=== PATIENT | male | born 1970 | race Caucasian/White ===

== ENCOUNTER 2017-02-25 15:15 | Inpatient (IN) | payer OTHER ==
[2017-02-25 17:02] VITALS: BMI 28.8
--- NOTE | 2017-02-25 18:44 | HP ---
CIWA Score - CIWA Score Nausea/Vomitin-Mild Nausea/No Vomiting Muscle Tremors: 4-Moderate,w/Arms Extend Anxiety: 4-Mod. Anxious/Guarded Agitation: 4-Moderately Restless Paroxysmal Sweats: 1-Minimal Palms Moist Orientation: 0-Oriented Tacttile Disturbances: 0-None Auditory Disturbances: 0-None Visual Disturbances: 0-None Headache: 3-Moderate CIWA-Ar Total Score: 17 Admission ROS BHS - HPI Chief Complaint: withdrawal sx alcohol intoxicated treated in [facility] 02/24/15 discharged today for alcohol detox, history of dt and fatty liver, fell "few days ago" negative ct of head knee and ankles Allergies/Adverse Reactions: Allergies Allergy/AdvReac Type Severity Reaction Status Date / Time No Known Allergies Allergy Verified 02/25/17 17:27 History of Present Illness: 46 years old male with long history of alcohol dependence denies medical has depression is admitted to detox Exam Limitations: No Limitations - Ebola screening Have you traveled outside of the country in the last 21 days: No Have you had contact with anyone from an Ebola affected area: No Have you been sick,other than usual withdrawal symptoms: No Do you have a fever: No - Review of Systems Constitutional: Chills, Changes in sleep, Weight Stable EENT: reports: No Symptoms Reported Respiratory: reports: No Symptoms reported Cardiac: reports: No Symptoms Reported GI: reports: Nausea, Poor Fluid Intake, Indigestion, Abdominal cramping : reports: No Symptoms Reported Musculoskeletal: reports: Back Pain, Joint Pain (right knee) Integumentary: reports: Change in Color (knees fell days ago) Neuro: reports: Tremors, Other (dt) Endocrine: reports: No Symptoms Reported Hematology: reports: No Symptoms Reported Psychiatric: reports: Judgement Intact, Anxious, Depressed Other Systems: Reviewed and Negative Patient History - Patient Medical History Hx Anemia: No Hx Asthma: No Hx Chronic Obstructive Pulmonary Disease (COPD): No Hx Cancer: No Hx Cardiac Disorders: No Hx Congestive Heart Failure: No Hx Hypertension: No Hx Hypercholesterolemia: No Hx Pacemaker: No HX Cerebrovascular Accident: No Hx Seizures: No Hx Dementia: No Hx Diabetes: No Hx Gastrointestinal Disorders: No Hx Liver Disease: No Hx Genitourinary Disorders: No Hx Sexually Transmitted Disorders: No Hx Renal Disease (ESRD): No Hx Thyroid Disease: No Hx Human Immunodeficiency Virus (HIV): No Hx Hepatitis C: No Hx Depression: Yes Hx Suicide Attempt: Yes (2014) Hx Bipolar Disorder: No Hx Schizophrenia: No - Patient Surgical History Past Surgical History: Yes Hx Neurologic Surgery: No Hx Cataract Extraction: No Hx Cardiac Surgery: No Hx Lung Surgery: No Hx Breast Surgery: No Hx Breast Biopsy: No Hx Abdominal Surgery: No Hx Appendectomy: No Hx Cholecystectomy: Yes (1989) Hx Genitourinary Surgery: No Hx Orthopedic Surgery: No Anesthesia Reaction: No - PPD History Previous Implant?: Yes Documented Results: Negative w/o proof Implanted On Prior R Admission?: No PPD to be Administered?: Yes - Smoking Cessation Smoking history: Former smoker Have you smoked in the past 12 months: Yes Aproximately how many cigarettes per day: 0 Hx Chewing Tobacco Use: No Initiated information on smoking cessation: No - Substance & Tx. History Hx Alcohol Use: Yes Hx Substance Use: Yes Substance Use Type: Alcohol Hx Substance Use Treatment: Yes - Substances Abused Alcohol Route: Oral Frequency: Daily Amount used: liquor- 1/2 gallon Age of first use: 15 Date of Last Use: 02/23/17 Family Disease History - Family Disease History Family Disease History: Respiratory: Mother (), Other: Father ( liver), Mother, Brother (mva ) Admission Physical Exam BHS - Vital Signs Vital Signs: Vital Signs - 24 hr 02/25/17 17:00 Temperature 96.9 F L Pulse Rate 165 H Respiratory 20 Rate Blood Pressure 141/95 - Physical General Appearance: Yes: Appropriately Dressed, Moderate Distress, Tremorous, Irritable, Sweating, Anxious HEENTM: Yes: Hearing grossly Normal, Normal ENT Inspection, Normocephalic, Normal Voice Respiratory: Yes: Chest Non-Tender, Lungs Clear, Normal Breath Sounds, No Respiratory Distress, No Accessory Muscle Use Neck: Yes: Supple, Trachea in good position Breast: Yes: Breasts Symetrical Cardiology: Yes: Regular Rhythm, S1, S2, Tachycardia Abdominal: Yes: Non Tender, Soft, Increased Bowel Sounds Genitourinary: Yes: Within Normal Limits Back: Yes: Normal Inspection Musculoskeletal: Yes: full range of Motion, Gait Steady Extremities: Yes: Normal Inspection, Normal Range of Motion, Non-Tender, Tremors Neurological: Yes: Fully Oriented, Alert, Motor Strength 5/5, Normal Response, Depressed Affect Integumentary: Yes: Warm Lymphatic: Yes: Within Normal Limits - Diagnostic (1) Alcohol dependence with uncomplicated withdrawal Current Visit: Yes Status: Acute (2) GERD (gastroesophageal reflux disease) Current Visit: Yes Status: Chronic Qualifiers: Esophagitis presence: without esophagitis Qualified Code(s): K21.9 - Gastro-esophageal reflux disease without esophagitis (3) Fatty liver Current Visit: Yes Status: Chronic (4) PTSD (post-traumatic stress disorder) Current Visit: Yes Status: Suspected Cleared for Admission [facility] - Detox or Rehab [facility] Level of Care: Medically Managed Detox Regimen/Protocol: Librium [facility] Breath Alcohol Content Breath Alcohol Content: 0 Urine Drug Screen - Results Drug Screen Negative: No Urine Drug Screen Results: BZO-Benzodiazepines
[2017-02-25] MEDS ORDERED: ACETAMINOPHEN 325 MG TABLET (FP) PO PRN (18:52)
[2017-02-25] MEDS ORDERED: hydrOXYzine PAMOATE 50 MG CAPSULE (FP) PO PRN (18:52)
[2017-02-25] MEDS ORDERED: guaiFENesin/D-METHORPHAN HB 10 ML UNIT-DOSE CUPS PO PRN (18:52)
[2017-02-25] MEDS ORDERED: MAG HYDROX/AL HYDROX/SIMETH 30 ML UNIT-DOSE CUP PO PRN (18:52)
[2017-02-25] MEDS ORDERED: P-EPHED 60MG/TRIPROLIDI 2.5MG TABLET PO PRN (18:52)
[2017-02-25] MEDS ORDERED: MAGNESIUM HYDROX 2400MG/30ML ORAL SUSPENSION 30 ML CUP PO PRN (18:52)
[2017-02-25] MEDS ORDERED: chlordiazePOXIDE HCL 25 MG CAPSULE PO PRN (18:52)
[2017-02-25] MEDS ORDERED: MAGNESIUM CITRATE 300 ML BOTTLE PO PRN (18:52)
[2017-02-25] MEDS ORDERED: LOPERAMIDE HCL 2 MG CAPSULE PO PRN (18:52)
[2017-02-25] MEDS ORDERED: chlordiazePOXIDE HCL 25 MG CAPSULE PO ONE (18:52)
[2017-02-25] MEDS ORDERED: MENTHOL/PHENOL 1 EACH UD MM PRN (18:52)
[2017-02-25] MEDS: RANITIDINE HCL 150 MG TABLET (FP) PO SCH (22:24)
[2017-02-25] MEDS: chlordiazePOXIDE HCL 25 MG CAPSULE PO SCH (22:24)
[2017-02-25] MEDS: diphenhydrAMINE HCL 50 MG CAPSULE PO PRN (22:24)
[2017-02-25] MEDS: THIAMINE HCL 100 MG TABLET (FP) PO SCH (22:24)
[2017-02-25 23:07] LABS: URINE APPEARANCE CLEAR; URINE BILIRUBIN NEGATIVE (NEGATIVE); URINE BLOOD NEGATIVE (NEGATIVE); URINE COLOR LTYELLOW; URINE GLUCOSE (UA) NEGATIVE (NEGATIVE); URINE KETONE TRACE (NEGATIVE); URINE LEUK ESTERASE NEGATIVE (NEGATIVE); URINE NITRITE NEGATIVE (NEGATIVE); URINE PROTEIN NEGATIVE (NEGATIVE); URINE UROBILINOGEN NEGATIVE E.U./dl (0.2-1.0)
[2017-02-25] MEDS: SUCRALFATE 1 GM/10 ML UNIT DOSE CUPS PO SCH (23:07)
[2017-02-26] MEDS: chlordiazePOXIDE HCL 25 MG CAPSULE PO SCH ×4 (05:44→22:18)
[2017-02-26] MEDS: SUCRALFATE 1 GM/10 ML UNIT DOSE CUPS PO SCH ×4 (07:12→22:18)
[2017-02-26] MEDS: RANITIDINE HCL 150 MG TABLET (FP) PO SCH ×2 (10:03→22:18)
[2017-02-26] MEDS: PRENATAL VITAMINS W/ FOLIC ACID TABLET (FP) PO SCH (10:03)
[2017-02-26 10:07] LABS: MCH 30.3 pg (25.7-33.7); MCHC 32.8 g/dl (32.0-35.9); MEAN CELL VOLUME 92.3 fl (80-96); MEAN PLT VOLUME 7.8 fl (7.5-11.1); PLATELET COUNT 176 K/MM3 (134-434); RDW 16.8 % (11.9-15.9); WHITE BLOOD COUNT 3.3 K/mm3 (4.0-10.0)
[2017-02-26 10:47] LABS: ALBUMIN 3.1 g/dl (3.4-5.0); ALK PHOS 128 U/L (45-117); ANION GAP 7 (8-16); BILIRUBIN,TOTAL 0.4 mg/dL (0.2-1.0); CALCIUM 8.6 mg/dL (8.5-10.1); CO2 31 mmol/L (21-32); COCKROFT - GAULT 160.73; CREATININE 0.7 mg/dL (0.7-1.3); GLUCOSE,RANDOM 83 mg/dL (74-106); SGOT/AST 36 U/L (15-37); SGPT/ALT 36 U/L (12-78); TOT PROT 6.8 g/dl (6.4-8.2)
--- NOTE | 2017-02-26 11:59 | EKG ---
Test Reason : Blood Pressure : / mmHG Vent. Rate : 053 BPM Atrial Rate : 053 BPM P-R Int : 164 ms QRS Dur : 110 ms QT Int : 424 ms P-R-T Axes : 064 010 044 degrees QTc Int : 397 ms SINUS BRADYCARDIA OTHERWISE NORMAL ECG NO PREVIOUS ECGS AVAILABLE Confirmed by KELLY WALKER, WILMAR ([id number]) on 02/26/2017 11:58:35 AM Referred By: Confirmed By:WILMAR MENDOZA MD
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
[2017-02-26] MEDS ORDERED: chlordiazePOXIDE HCL 25 MG CAPSULE PO ONE (14:00)
[2017-02-26] MEDS: POTASSIUM CHLORIDE TABS 20 MEQ TABLET.ER (FP) PO SCH ×2 (14:46→22:18)
--- NOTE | 2017-02-26 14:54 | PN ---
[facility] CIWA - CIWA Score Nausea/Vomitin Muscle Tremors: 5 Anxiety: 4-Mod. Anxious/Guarded Agitation: 4-Moderately Restless Paroxysmal Sweats: 3 Orientation: 0-Oriented Tacttile Disturbances: 0-None Auditory Disturbances: 0-None Visual Disturbances: 0-None Headache: 0-None Present CIWA-Ar Total Score: 18 S Progress Note (SOAP) Subjective: Anxiety,tremors,sweating,interrupted sleep,restless Objective: 02/26/17 14:53 Vital Signs - 8 hr 02/26/17 02/26/17 09:35 13:28 Temperature 97.0 F L 97.5 F L Pulse Rate 80 75 Respiratory 18 18 Rate Blood Pressure 122/86 113/78 Laboratory Last Values WBC 3.3 K/mm3 (4.0-10.0) L 02/26/17 07:00 RBC 4.33 M/mm3 (4.00-5.60) 02/26/17 07:00 Hgb 13.1 GM/dL (11.7-16.9) 02/26/17 07:00 Hct 40.0 % (35.4-49) 02/26/17 07:00 MCV 92.3 fl (80-96) 02/26/17 07:00 MCHC 32.8 g/dl (32.0-35.9) 02/26/17 07:00 RDW 16.8 % (11.9-15.9) H 02/26/17 07:00 Plt Count 176 K/MM3 (134-434) 02/26/17 07:00 MPV 7.8 fl (7.5-11.1) 02/26/17 07:00 Sodium 140 mmol/L (136-145) 02/26/17 07:00 Potassium 3.3 mmol/L (3.5-5.1) L 02/26/17 07:00 Chloride 102 mmol/L (98-107) 02/26/17 07:00 Carbon Dioxide 31 mmol/L (21-32) 02/26/17 07:00 Anion Gap 7 (8-16) L 02/26/17 07:00 BUN 10 mg/dL (7-18) 02/26/17 07:00 Creatinine 0.7 mg/dL (0.7-1.3) 02/26/17 07:00 Creat Clearance w eGFR > 60 (>60) 02/26/17 07:00 Random Glucose 83 mg/dL (74-106) 02/26/17 07:00 Calcium 8.6 mg/dL (8.5-10.1) 02/26/17 07:00 Total Bilirubin 0.4 mg/dL (0.2-1.0) 02/26/17 07:00 AST 36 U/L (15-37) 02/26/17 07:00 ALT 36 U/L (12-78) 02/26/17 07:00 Alkaline Phosphatase 128 U/L (45-117) H 02/26/17 07:00 Total Protein 6.8 g/dl (6.4-8.2) 02/26/17 07:00 Albumin 3.1 g/dl (3.4-5.0) L 02/26/17 07:00 Urine Color Ltyellow 02/25/17 22:02 Urine Appearance Clear 02/25/17 22:02 Urine pH 5.0 (5.0-8.0) 02/25/17 22:02 Ur Specific [place] 1.020 (1.005-1.025) 02/25/17 22:02 Urine Protein Negative (NEGATIVE) 02/25/17 22:02 Urine Glucose (UA) Negative (NEGATIVE) 02/25/17 22:02 Urine Ketones Trace (NEGATIVE) H 02/25/17 22:02 Urine Blood Negative (NEGATIVE) 02/25/17 22:02 Urine Nitrite Negative (NEGATIVE) 02/25/17 22:02 Urine Bilirubin Negative (NEGATIVE) 02/25/17 22:02 Urine Urobilinogen Negative E.U./dl (0.2-1.0) 02/25/17 22:02 Ur Leukocyte Esterase Negative (NEGATIVE) 02/25/17 22:02 RPR Titer Nonreactive (NONREACTIVE) 02/26/17 07:00 labs noted,k-dur started Assessment: 02/26/17 14:54 Withdrawal sx. Plan: Continue detox
[2017-02-26] MEDS: diphenhydrAMINE HCL 50 MG CAPSULE PO PRN (22:18)
[2017-02-26] MEDS: THIAMINE HCL 100 MG TABLET (FP) PO SCH (22:18)
[2017-02-27] MEDS: chlordiazePOXIDE HCL 25 MG CAPSULE PO SCH ×3 (05:24→17:30)
[2017-02-27] MEDS: SUCRALFATE 1 GM/10 ML UNIT DOSE CUPS PO SCH ×4 (06:11→22:21)
[2017-02-27] MEDS: POTASSIUM CHLORIDE TABS 20 MEQ TABLET.ER (FP) PO SCH ×2 (10:23→22:22)
[2017-02-27] MEDS: PRENATAL VITAMINS W/ FOLIC ACID TABLET (FP) PO SCH (10:23)
[2017-02-27] MEDS: RANITIDINE HCL 150 MG TABLET (FP) PO SCH ×2 (10:23→22:22)
--- NOTE | 2017-02-27 11:11 | PN ---
[facility] CIWA - CIWA Score Nausea/Vomitin-Mild Nausea/No Vomiting Muscle Tremors: 4-Moderate,w/Arms Extend Anxiety: 4-Mod. Anxious/Guarded Agitation: 4-Moderately Restless Paroxysmal Sweats: 3 Orientation: 0-Oriented Tacttile Disturbances: 0-None Auditory Disturbances: 0-None Visual Disturbances: 0-None Headache: 0-None Present CIWA-Ar Total Score: 16 BHS Progress Note (SOAP) Subjective: Sweating,interrupted sleep,tremors,anxiety,restless. Objective: 02/27/17 11:10 Vital Signs - 8 hr 02/27/17 02/27/17 02/27/17 03:55 06:28 09:15 Temperature 97 F L 97.3 F L Pulse Rate 63 66 Respiratory 18 18 18 Rate Blood Pressure 105/67 139/91 Laboratory Last Values WBC 3.3 K/mm3 (4.0-10.0) L 02/26/17 07:00 RBC 4.33 M/mm3 (4.00-5.60) 02/26/17 07:00 Hgb 13.1 GM/dL (11.7-16.9) 02/26/17 07:00 Hct 40.0 % (35.4-49) 02/26/17 07:00 MCV 92.3 fl (80-96) 02/26/17 07:00 MCHC 32.8 g/dl (32.0-35.9) 02/26/17 07:00 RDW 16.8 % (11.9-15.9) H 02/26/17 07:00 Plt Count 176 K/MM3 (134-434) 02/26/17 07:00 MPV 7.8 fl (7.5-11.1) 02/26/17 07:00 Sodium 140 mmol/L (136-145) 02/26/17 07:00 Potassium 3.3 mmol/L (3.5-5.1) L 02/26/17 07:00 Chloride 102 mmol/L (98-107) 02/26/17 07:00 Carbon Dioxide 31 mmol/L (21-32) 02/26/17 07:00 Anion Gap 7 (8-16) L 02/26/17 07:00 BUN 10 mg/dL (7-18) 02/26/17 07:00 Creatinine 0.7 mg/dL (0.7-1.3) 02/26/17 07:00 Creat Clearance w eGFR > 60 (>60) 02/26/17 07:00 Random Glucose 83 mg/dL (74-106) 02/26/17 07:00 Calcium 8.6 mg/dL (8.5-10.1) 02/26/17 07:00 Total Bilirubin 0.4 mg/dL (0.2-1.0) 02/26/17 07:00 AST 36 U/L (15-37) 02/26/17 07:00 ALT 36 U/L (12-78) 02/26/17 07:00 Alkaline Phosphatase 128 U/L (45-117) H 02/26/17 07:00 Total Protein 6.8 g/dl (6.4-8.2) 02/26/17 07:00 Albumin 3.1 g/dl (3.4-5.0) L 02/26/17 07:00 Urine Color Ltyellow 02/25/17 22:02 Urine Appearance Clear 02/25/17 22:02 Urine pH 5.0 (5.0-8.0) 02/25/17 22:02 Ur Specific [place] 1.020 (1.005-1.025) 02/25/17 22:02 Urine Protein Negative (NEGATIVE) 02/25/17 22:02 Urine Glucose (UA) Negative (NEGATIVE) 02/25/17 22:02 Urine Ketones Trace (NEGATIVE) H 02/25/17 22:02 Urine Blood Negative (NEGATIVE) 02/25/17 22:02 Urine Nitrite Negative (NEGATIVE) 02/25/17 22:02 Urine Bilirubin Negative (NEGATIVE) 02/25/17 22:02 Urine Urobilinogen Negative E.U./dl (0.2-1.0) 02/25/17 22:02 Ur Leukocyte Esterase Negative (NEGATIVE) 02/25/17 22:02 RPR Titer Nonreactive (NONREACTIVE) 02/26/17 07:00 K+ replacement given Assessment: 02/27/17 11:11 Withdrawal sx. Hypokalemia Plan: Continue detox
[2017-02-27] MEDS ORDERED: chlordiazePOXIDE HCL 25 MG CAPSULE PO ONE (14:00)
[2017-02-27] MEDS: THIAMINE HCL 100 MG TABLET (FP) PO SCH (22:21)
[2017-02-27] MEDS: diphenhydrAMINE HCL 50 MG CAPSULE PO PRN (22:22)
[2017-02-27] MEDS: chlordiazePOXIDE 5 MG CAPSULE PO SCH (22:22)
[2017-02-28] MEDS: chlordiazePOXIDE 5 MG CAPSULE PO SCH (05:24)
[2017-02-28] MEDS: SUCRALFATE 1 GM/10 ML UNIT DOSE CUPS PO SCH (07:20)
[2017-02-28 10:18] VITALS: BP 104/70; PULSE 76; TEMP 98.2
--- NOTE | 2017-02-28 11:48 | DS ---
[facility] Detox Discharge Summary Admission Date: 02/25/17 Discharge Date: 02/28/17 - History Present History: Alcohol Dependence Additional Comments: ADVISED PATIENT TO FOLLOW-UP WITH [facility] FOR GENERAL MEDICAL ASSESSMENT. Pertinent Past History: GERD, Depression, Fatty Liver, PTSD. - Physical Exam Results Vital Signs: Vital Signs Temperature 98.2 F 02/28/17 10:18 Pulse Rate 76 02/28/17 10:18 Respiratory Rate 18 02/28/17 10:18 Blood Pressure 104/70 02/28/17 10:18 O2 Sat by Pulse Oximetry (%) Pertinent Admission Physical Exam Findings: WITHDRAWAL SYMPTOMS. Laboratory Tests 02/25/17 02/26/17 02/26/17 22:02 07:00 07:00 WBC 3.3 L RBC 4.33 Hgb 13.1 Hct 40.0 MCV 92.3 MCHC 32.8 RDW 16.8 H Plt Count 176 MPV 7.8 Sodium 140 Potassium 3.3 L Chloride 102 Carbon Dioxide 31 Anion Gap 7 L BUN 10 Creatinine 0.7 Creat Clearance w eGFR > 60 Random Glucose 83 Calcium 8.6 Total Bilirubin 0.4 AST 36 ALT 36 Alkaline Phosphatase 128 H Total Protein 6.8 Albumin 3.1 L Urine Color Ltyellow Urine Appearance Clear Urine pH 5.0 Ur Specific [place] 1.020 Urine Protein Negative Urine Glucose (UA) Negative Urine Ketones Trace H Urine Blood Negative Urine Nitrite Negative Urine Bilirubin Negative Urine Urobilinogen Negative Ur Leukocyte Esterase Negative RPR Titer 02/26/17 07:00 WBC RBC Hgb Hct MCV MCHC RDW Plt Count MPV Sodium Potassium Chloride Carbon Dioxide Anion Gap BUN Creatinine Creat Clearance w eGFR Random Glucose Calcium Total Bilirubin AST ALT Alkaline Phosphatase Total Protein Albumin Urine Color Urine Appearance Urine pH Ur Specific [place] Urine Protein Urine Glucose (UA) Urine Ketones Urine Blood Urine Nitrite Urine Bilirubin Urine Urobilinogen Ur Leukocyte Esterase RPR Titer Nonreactive LABS NOTED. - Treatment Hospital Course: Detoxed Safely - Medication Discharge Medications: Ambulatory Orders NK [No Known Home Medication] 02/25/17 - Diagnosis (1) Alcohol dependence with uncomplicated withdrawal Current Visit: Yes Status: Acute (2) Alcohol-induced mood disorder Current Visit: Yes Status: Acute (3) Insomnia Current Visit: Yes Status: Chronic Qualifiers: Insomnia type: unspecified Qualified Code(s): G47.00 - Insomnia, unspecified (4) Fatty liver Current Visit: Yes Status: Chronic (5) GERD (gastroesophageal reflux disease) Current Visit: Yes Status: Chronic Qualifiers: Esophagitis presence: without esophagitis Qualified Code(s): K21.9 - Gastro-esophageal reflux disease without esophagitis (6) PTSD (post-traumatic stress disorder) Current Visit: Yes Status: Suspected - AMA Did Patient Leave Against Medical Advice: Yes (PATIENT HAD TO GET TO APPOINTMENT AT [facility].)
[2017-02-28] MEDS ORDERED: chlordiazePOXIDE HCL 10 MG CAPSULE PO SCH (23:00)
== END 2017-02-28 10:22 | disposition left against medical advice (07) | DRG 770 ==
LOC: YASAS 15:15 → Y3N 19:05
PROVIDERS: ADMIT Internal Medicine; ATTEND Internal Medicine
PROC: HZ2ZZZZ Detoxification Services for Substance Abuse Treatment (ICD-10-PCS; principal; 2017-02-28)
DX: F10.230 Alcohol dependence with withdrawal, uncomplicated (principal); F10.24 Alcohol dependence with alcohol-induced mood disorder; F43.10 Post-traumatic stress disorder, unspecified; G47.00 Insomnia, unspecified; K76.0 Fatty (change of) liver, not elsewhere classified; K21.9 Gastro-esophageal reflux disease without esophagitis; Z59.0 Homelessness
CPT/HCPCS: 36415; 80053; 81003; 85027; 86593; 93005; 93010

== ENCOUNTER 2017-04-10 08:13 | Inpatient (IN) | payer OTHER ==
[2017-04-10 08:50] VITALS: BMI 28.1
--- NOTE | 2017-04-10 09:05 | HP ---
CIWA Score - CIWA Score Nausea/Vomitin Muscle Tremors: 3 Anxiety: 3 Agitation: 3 Paroxysmal Sweats: 2 Orientation: 0-Oriented Tacttile Disturbances: 2-Mild Itch/Numbness/Burn Auditory Disturbances: 2-Mild Harshness/Frighten Visual Disturbances: 2-Mild Sensitivity Headache: 2-Mild CIWA-Ar Total Score: 22 Admission ROS BHS - HPI Chief Complaint: i need help to stop drinking alcohol Allergies/Adverse Reactions: Allergies Allergy/AdvReac Type Severity Reaction Status Date / Time No Known Allergies Allergy Verified 02/25/17 17:27 History of Present Illness: this 46 years old male with alcohol dependence,seeking help to stop drinking alcohol,last treatment in detox 02/25/17 to 02/28/17 [facility] not completed depression nicotine dependence longest period of sobriety 9 months several admissions in detox,keep relapsing seen in [facility] last night Exam Limitations: No Limitations - Ebola screening Have you traveled outside of the country in the last 21 days: No Have you had contact with anyone from an Ebola affected area: No Have you been sick,other than usual withdrawal symptoms: No Do you have a fever: No - Review of Systems Constitutional: Loss of Appetite, Malaise, Night Sweats, Changes in sleep, Weakness, Unintentional Wgt. Loss EENT: reports: Nose Congestion Respiratory: reports: No Symptoms reported Cardiac: reports: No Symptoms Reported GI: reports: Diarrhea, Nausea, Vomiting, Abdominal cramping : reports: No Symptoms Reported Musculoskeletal: reports: Back Pain, Muscle Pain Integumentary: reports: Dryness Hematology: reports: No Symptoms Reported Psychiatric: reports: Depressed Patient History - Patient Medical History Hx Anemia: No Hx Asthma: No Hx Chronic Obstructive Pulmonary Disease (COPD): No Hx Cancer: No Hx Cardiac Disorders: No Hx Congestive Heart Failure: No Hx Hypertension: No Hx Hypercholesterolemia: No Hx Pacemaker: No HX Cerebrovascular Accident: No Hx Seizures: No Hx Dementia: No Hx Diabetes: No Hx Gastrointestinal Disorders: No Hx Liver Disease: No Hx Genitourinary Disorders: No Hx Sexually Transmitted Disorders: No Hx Renal Disease (ESRD): No Hx Thyroid Disease: No Hx Human Immunodeficiency Virus (HIV): No Hx Hepatitis C: No Hx Depression: Yes (2014 after the loss of in [place] admitted for 1 week) Hx Suicide Attempt: No Hx Bipolar Disorder: No Hx Schizophrenia: No Other Medical History: no suicidal,no homicidal - Patient Surgical History Past Surgical History: Yes Hx Neurologic Surgery: No Hx Cataract Extraction: No Hx Cardiac Surgery: No Hx Lung Surgery: No Hx Breast Surgery: No Hx Breast Biopsy: No Hx Abdominal Surgery: No Hx Appendectomy: No Hx Cholecystectomy: Yes (1989 open cholecystectomy) Hx Genitourinary Surgery: No Hx Section: No Hx Orthopedic Surgery: No Anesthesia Reaction: No - PPD History Previous Implant?: Yes Documented Results: Negative w/proof Implanted On Prior [facility] Admission?: Yes Date: 02/27/17 Results: 0 mm PPD to be Administered?: No - Smoking Cessation Smoking history: Never smoked Aproximately how many cigarettes per day: 0 Hx Chewing Tobacco Use: No - Substance & Tx. History Hx Alcohol Use: Yes Hx Substance Use: No Substance Use Type: Alcohol Hx Substance Use Treatment: Yes ([facility] 02/25/17 to 02/28/17) - Substances Abused Alcohol Route: Oral Frequency: Daily Amount used: 1 litre of vodka/5 of 40 ozs of beer Age of first use: 15 Date of Last Use: 04/09/17 Family Disease History - Family Disease History Family Disease History: Respiratory: Mother (), Other: Father ( liver), Mother, Brother (mva ) Admission Physical Exam S - Vital Signs Vital Signs: Vital Signs - 24 hr 04/10/17 08:48 Temperature 97.4 F L Pulse Rate 70 Respiratory 20 Rate Blood Pressure 150/96 - Physical General Appearance: Yes: Moderate Distress, Tremorous, Irritable, Sweating, Anxious HEENTM: Yes: Hearing grossly Normal, Normal ENT Inspection, Pharynx Normal Respiratory: Yes: Lungs Clear, Normal Breath Sounds, No Respiratory Distress Neck: Yes: Within Normal Limits Breast: Yes: Within Normal Limits Cardiology: Yes: Within Normal Limits, Regular Rhythm, Regular Rate, S1, S2 Abdominal: Yes: Within Normal Limits, Normal Bowel Sounds, Non Tender, Flat, Soft Genitourinary: Yes: Within Normal Limits Back: Yes: Muscle Spasm Musculoskeletal: Yes: full range of Motion, Back pain, Muscle Pain Extremities: Yes: Tremors 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 (3) PTSD (post-traumatic stress disorder) Current Visit: No Status: Suspected (4) Nicotine dependence Current Visit: Yes Status: Acute (5) S/P cholecystectomy Current Visit: Yes Status: Acute Cleared for Admission [facility] - Detox or Rehab [facility] Level of Care: Medically Managed [facility] Breath Alcohol Content Breath Alcohol Content: 0 Urine Drug Screen - Results Drug Screen Negative: No Urine Drug Screen Results: BZO-Benzodiazepines
[2017-04-10] MEDS ORDERED: guaiFENesin/D-METHORPHAN HB 10 ML UNIT-DOSE CUPS PO PRN (09:39)
[2017-04-10] MEDS ORDERED: LOPERAMIDE HCL 2 MG CAPSULE PO PRN (09:39)
[2017-04-10] MEDS ORDERED: hydrOXYzine PAMOATE 50 MG CAPSULE (FP) PO PRN (09:39)
[2017-04-10] MEDS ORDERED: MAG HYDROX/AL HYDROX/SIMETH 30 ML UNIT-DOSE CUP PO PRN (09:39)
[2017-04-10] MEDS ORDERED: ACETAMINOPHEN 325 MG TABLET (FP) PO PRN (09:39)
[2017-04-10] MEDS ORDERED: MENTHOL/PHENOL 1 EACH UD MM PRN (09:39)
[2017-04-10] MEDS ORDERED: IBUPROFEN 400 MG TABLET (FP) PO PRN (09:39)
[2017-04-10] MEDS ORDERED: P-EPHED 60MG/TRIPROLIDI 2.5MG TABLET PO PRN (09:39)
[2017-04-10] MEDS ORDERED: MAGNESIUM CITRATE 300 ML BOTTLE PO PRN (09:39)
[2017-04-10] MEDS ORDERED: chlordiazePOXIDE HCL 25 MG CAPSULE PO PRN (09:39)
[2017-04-10] MEDS ORDERED: MAGNESIUM HYDROX 2400MG/30ML ORAL SUSPENSION 30 ML CUP PO PRN (09:39)
[2017-04-10] MEDS ORDERED: chlordiazePOXIDE HCL 25 MG CAPSULE PO ONE (10:15)
[2017-04-10] MEDS: PRENATAL VITAMINS W/ FOLIC ACID TABLET (FP) PO SCH (11:40)
--- NOTE | 2017-04-10 14:42 | CONSULT ---
[facility] Psychiatric Consult - Data Date of interview: 04/10/17 Admission source: [facility] Identifying data: This is 46 years old male with psychiatric hospitalization history intoxicated with: Alcohol, Benzodiazepoins Substance Abuse History: - Smoking Cessation. Smoking history: Never smoked. Aproximately how many cigarettes per day: 0. Hx Chewing Tobacco Use: No. - Substance & Tx. History. Hx Alcohol Use: Yes. Hx Substance Use: No. Substance Use Type: Alcohol. Hx Substance Use Treatment: Yes ([facility] 02/25/17 to 02/28/17). - Substances Abused. Alcohol. Route: Oral. Frequency: Daily. Amount used: 1 litre of vodka/5 of 40 ozs of beer. Age of first use: 15. Date of Last Use: 04/09/17 Medical History: S/P Cholecystectomy, Fatty Liver history, GERD Psychiatric History: Patient reports hbistory of aptsd, Depression history, reports only psychiatric admission at [facility] due to depressed mood, denies suicidal history, reports no medications taking prior to admission Physical/Sexual Abuse/Trauma History: Denies Additional Comment: Obsewrvation. Detox Unit Care Protocol Mental Status Exam - Mental Status Exam Alert and Oriented to: Person Cognitive Function: Fair Patient Appearance: Unkempt Mood: Suspicious, Anxious Affect: Mood Congruent Patient Behavior: Cooperative Speech Pattern: Appropriate Voice Loudness: Normal Thought Process: Goal Oriented Thought Disorder: Being Controlled Hallucinations: Denies Suicidal Ideation: Denies Homicidal Ideation: Denies Insight/Judgement: Fair Sleep: Difficulty falling asleep Appetite: Fair Muscle strength/Tone: Mild Hypotonicity Gait/Station: Shuffling Additional Comments: Obsewrvation. Detox Unit Care Protocol Psychiatric Findings - Problem List (Dana 1, 2,3) (1) Nicotine dependence Current Visit: Yes Status: Acute (2) Alcohol dependence with uncomplicated withdrawal Current Visit: No Status: Acute (3) Alcohol-induced mood disorder Current Visit: No Status: Acute (4) PTSD (post-traumatic stress disorder) Current Visit: No Status: Suspected (5) Drug-induced mood disorder Current Visit: Yes Status: Acute - Initial Treatment Plan Initial Treatment Plan: Obsewrvation. Detox Unit Care Protocol
--- NOTE | 2017-04-10 15:47 | EKG ---
Test Reason : Blood Pressure : / mmHG Vent. Rate : 059 BPM Atrial Rate : 059 BPM P-R Int : 152 ms QRS Dur : 094 ms QT Int : 412 ms P-R-T Axes : 055 027 037 degrees QTc Int : 407 ms SINUS BRADYCARDIA OTHERWISE NORMAL ECG WHEN COMPARED WITH ECG OF 25-FEB-2017 18:46, NO SIGNIFICANT CHANGE WAS FOUND Confirmed by TIESHA VALENZUELA MD ([id number]) on 04/10/2017 3:46:48 PM Referred By: Confirmed By:TIESHA VALENZUELA MD
[2017-04-10] MEDS: chlordiazePOXIDE HCL 25 MG CAPSULE PO SCH ×2 (17:19→22:09)
[2017-04-10] MEDS: THIAMINE HCL 100 MG TABLET (FP) PO SCH (22:09)
[2017-04-10] MEDS: diphenhydrAMINE HCL 50 MG CAPSULE PO PRN (22:10)
[2017-04-11] MEDS: chlordiazePOXIDE HCL 25 MG CAPSULE PO SCH ×4 (05:33→22:22)
[2017-04-11 09:59] LABS: MCH 29.4 pg (25.7-33.7); MCHC 32.7 g/dl (32.0-35.9); MEAN PLT VOLUME 8.5 fl (7.5-11.1); PLATELET COUNT 125 K/MM3 (134-434); RDW 15.2 % (11.9-15.9); WHITE BLOOD COUNT 3.6 K/mm3 (4.0-10.0)
[2017-04-11 10:13] LABS: ALBUMIN 3.6 g/dl (3.4-5.0); ANION GAP 8 (8-16); BILIRUBIN,TOTAL 0.7 mg/dL (0.2-1.0); CALCIUM 8.6 mg/dL (8.5-10.1); CO2 29 mmol/L (21-32); CREATININE 0.8 mg/dL (0.7-1.3); GLUCOSE,RANDOM 147 mg/dL (74-106); SGOT/AST 71 U/L (15-37); SGPT/ALT 54 U/L (12-78); TOT PROT 7.5 g/dl (6.4-8.2)
[2017-04-11 10:14] LABS: ALK PHOS 113 U/L (45-117)
[2017-04-11] MEDS: PRENATAL VITAMINS W/ FOLIC ACID TABLET (FP) PO SCH (10:25)
--- NOTE | 2017-04-11 11:06 | PN ---
[facility] CIWA - CIWA Score Nausea/Vomitin-Mild Nausea/No Vomiting Muscle Tremors: 4-Moderate,w/Arms Extend Anxiety: 3 Agitation: 2 Paroxysmal Sweats: 3 Orientation: 0-Oriented Tacttile Disturbances: 3-Moderate Itch/Numb/Burn Auditory Disturbances: 0-None Visual Disturbances: 2-Mild Sensitivity Headache: 0-None Present CIWA-Ar Total Score: 18 BHS Progress Note (SOAP) Subjective: Interrupted Sleep, Sweating, Fatigue, Body Aches, Tremors. Objective: PT. A & O X 3, OBSERVED AMBULATING ON UNIT. NO ACUTE DISTRESS. 04/11/17 11:04 Vital Signs Temperature 97.1 F L 04/11/17 10:30 Pulse Rate 70 04/11/17 10:30 Respiratory Rate 18 04/11/17 10:30 Blood Pressure 126/92 04/11/17 10:30 O2 Sat by Pulse Oximetry (%) Laboratory Tests 04/11/17 04/11/17 06:00 06:00 WBC 3.6 L RBC 4.80 Hgb 14.1 Hct 43.2 MCV 90.0 MCH 29.4 MCHC 32.7 RDW 15.2 Plt Count 125 L D MPV 8.5 Sodium 136 Potassium 4.0 D Chloride 99 Carbon Dioxide 29 Anion Gap 8 BUN 14 D Creatinine 0.8 Creat Clearance w eGFR > 60 Random Glucose 147 H D Calcium 8.6 Total Bilirubin 0.7 D AST 71 H D ALT 54 D Alkaline Phosphatase 113 Total Protein 7.5 Albumin 3.6 LABS NOTED. ADMISSION UA NOT YET COLLECTED. 04/11/17 11:09 Assessment: 04/11/17 11:05 WITHDRAWAL SYMPTOMS. Plan: CONTINUE DETOX. BGM ACBK TOMORROW FOR ELEVATED ADMISSION RANDOM GLUCOSE LEVEL. REPEAT AST ON 04/13/2017 FOR ELEVATED ADMISSION LEVEL.
[2017-04-11] MEDS: diphenhydrAMINE HCL 50 MG CAPSULE PO PRN (22:22)
[2017-04-11] MEDS: THIAMINE HCL 100 MG TABLET (FP) PO SCH (22:22)
[2017-04-12] MEDS: chlordiazePOXIDE HCL 25 MG CAPSULE PO SCH ×2 (05:37→10:27)
[2017-04-12] MEDS: PRENATAL VITAMINS W/ FOLIC ACID TABLET (FP) PO SCH (10:26)
--- NOTE | 2017-04-12 12:56 | PN ---
[facility] CIWA - CIWA Score Nausea/Vomitin-No Nausea/No Vomiting Muscle Tremors: 4-Moderate,w/Arms Extend Anxiety: 2 Agitation: 1-Slight > Activity Paroxysmal Sweats: 3 Orientation: 0-Oriented Tacttile Disturbances: 0-None Auditory Disturbances: 2-Mild Harshness/Frighten Visual Disturbances: 2-Mild Sensitivity Headache: 0-None Present CIWA-Ar Total Score: 14 S Progress Note (SOAP) Subjective: Tremors, Interrupted Sleep, Fatigue, Body Aches. Objective: PT. A & O X 3, OBSERVED AMBULATING ON UNIT. NO ACUTE DISTRESS. 04/12/17 12:53 Vital Signs Temperature 96.9 F L 04/12/17 09:15 Pulse Rate 62 04/12/17 09:15 Respiratory Rate 18 04/12/17 09:15 Blood Pressure 115/75 04/12/17 09:15 O2 Sat by Pulse Oximetry (%) Laboratory Tests 04/11/17 04/11/17 04/11/17 06:00 06:00 06:00 WBC 3.6 L RBC 4.80 Hgb 14.1 Hct 43.2 MCV 90.0 MCH 29.4 MCHC 32.7 RDW 15.2 Plt Count 125 L D MPV 8.5 Sodium 136 Potassium 4.0 D Chloride 99 Carbon Dioxide 29 Anion Gap 8 BUN 14 D Creatinine 0.8 Creat Clearance w eGFR > 60 POC Glucometer Random Glucose 147 H D Calcium 8.6 Total Bilirubin 0.7 D AST 71 H D ALT 54 D Alkaline Phosphatase 113 Total Protein 7.5 Albumin 3.6 RPR Titer Nonreactive 04/12/17 05:38 WBC RBC Hgb Hct MCV MCH MCHC RDW Plt Count MPV Sodium Potassium Chloride Carbon Dioxide Anion Gap BUN Creatinine Creat Clearance w eGFR POC Glucometer 105 Random Glucose Calcium Total Bilirubin AST ALT Alkaline Phosphatase Total Protein Albumin RPR Titer LABS NOTED. UA NOT YET COLLECTED. 04/12/17 12:56 Assessment: 04/12/17 12:54 WITHDRAWAL SYMPTOMS. Plan: CONTINUE DETOX.
[2017-04-12] MEDS: chlordiazePOXIDE 5 MG CAPSULE PO SCH ×2 (17:17→22:14)
[2017-04-12] MEDS: diphenhydrAMINE HCL 50 MG CAPSULE PO PRN (22:14)
[2017-04-12] MEDS: THIAMINE HCL 100 MG TABLET (FP) PO SCH (22:14)
[2017-04-13] MEDS: chlordiazePOXIDE 5 MG CAPSULE PO SCH ×2 (05:45→10:20)
[2017-04-13 10:05] LABS: URINE APPEARANCE CLEAR; URINE BILIRUBIN NEGATIVE (NEGATIVE); URINE BLOOD NEGATIVE (NEGATIVE); URINE COLOR LTYELLOW; URINE GLUCOSE (UA) NEGATIVE (NEGATIVE); URINE KETONE NEGATIVE (NEGATIVE); URINE LEUK ESTERASE NEGATIVE (NEGATIVE); URINE NITRITE NEGATIVE (NEGATIVE); URINE PROTEIN NEGATIVE (NEGATIVE); URINE UROBILINOGEN NEGATIVE mg/dL (0.2-1.0)
[2017-04-13 10:14] LABS: SGOT/AST 33 U/L (15-37); SGPT/ALT 45 U/L (12-78)
[2017-04-13] MEDS: PRENATAL VITAMINS W/ FOLIC ACID TABLET (FP) PO SCH (10:20)
--- NOTE | 2017-04-13 15:31 | PN ---
S Progress Note (SOAP) Subjective: Tremor, anxious, interrupted sleep Objective: 04/13/17 15:30 Last Vital Signs Temp Pulse Resp BP Pulse Ox 97.9 F 69 16 103/67 04/13/17 13:05 04/13/17 13:05 04/13/17 13:05 04/13/17 13:05 Laboratory Tests 04/11/17 04/11/17 04/11/17 06:00 06:00 06:00 WBC 3.6 L RBC 4.80 Hgb 14.1 Hct 43.2 MCV 90.0 MCH 29.4 MCHC 32.7 RDW 15.2 Plt Count 125 L D MPV 8.5 Sodium 136 Potassium 4.0 D Chloride 99 Carbon Dioxide 29 Anion Gap 8 BUN 14 D Creatinine 0.8 Creat Clearance w eGFR > 60 POC Glucometer Random Glucose 147 H D Calcium 8.6 Total Bilirubin 0.7 D AST 71 H D ALT 54 D Alkaline Phosphatase 113 Total Protein 7.5 Albumin 3.6 Urine Color Urine Appearance Urine pH Ur Specific [place] Urine Protein Urine Glucose (UA) Urine Ketones Urine Blood Urine Nitrite Urine Bilirubin Urine Urobilinogen Ur Leukocyte Esterase RPR Titer Nonreactive 04/12/17 04/13/17 04/13/17 05:38 07:30 07:45 WBC RBC Hgb Hct MCV MCH MCHC RDW Plt Count MPV Sodium Potassium Chloride Carbon Dioxide Anion Gap BUN Creatinine Creat Clearance w eGFR POC Glucometer 105 Random Glucose Calcium Total Bilirubin AST 33 D ALT 45 Alkaline Phosphatase Total Protein Albumin Urine Color Ltyellow Urine Appearance Clear Urine pH 6.0 Ur Specific [place] 1.020 Urine Protein Negative Urine Glucose (UA) Negative Urine Ketones Negative Urine Blood Negative Urine Nitrite Negative Urine Bilirubin Negative Urine Urobilinogen Negative Ur Leukocyte Esterase Negative RPR Titer Labs noted Assessment: 04/13/17 15:30 Withdrawal symptoms Plan: Continue detox
[2017-04-13] MEDS: chlordiazePOXIDE HCL 10 MG CAPSULE PO SCH ×2 (17:39→22:34)
[2017-04-13] MEDS: THIAMINE HCL 100 MG TABLET (FP) PO SCH (22:34)
[2017-04-13] MEDS: diphenhydrAMINE HCL 50 MG CAPSULE PO PRN (22:34)
[2017-04-14] MEDS: chlordiazePOXIDE HCL 10 MG CAPSULE PO SCH ×2 (05:19→10:31)
[2017-04-14 09:58] VITALS: BP 123/73; PULSE 69; TEMP 96.3
[2017-04-14] MEDS: PRENATAL VITAMINS W/ FOLIC ACID TABLET (FP) PO SCH (10:31)
--- NOTE | 2017-04-14 14:39 | DS ---
[facility] Detox Discharge Summary Admission Date: 04/10/17 Discharge Date: 04/14/17 - History Present History: Alcohol Dependence Additional Comments: Advised patient to follow-up with aftercare plan as directed. Pertinent Past History: History of Cholecystectomy, PTSD, GERD. - Physical Exam Results Vital Signs: Vital Signs Temperature 96.3 F L 04/14/17 09:56 Pulse Rate 69 04/14/17 09:56 Respiratory Rate 18 04/14/17 09:56 Blood Pressure 123/73 04/14/17 09:56 O2 Sat by Pulse Oximetry (%) Pertinent Admission Physical Exam Findings: WITHDRAWAL SYMPTOMS. Laboratory Tests 04/11/17 04/11/17 04/11/17 06:00 06:00 06:00 WBC 3.6 L RBC 4.80 Hgb 14.1 Hct 43.2 MCV 90.0 MCH 29.4 MCHC 32.7 RDW 15.2 Plt Count 125 L D MPV 8.5 Sodium 136 Potassium 4.0 D Chloride 99 Carbon Dioxide 29 Anion Gap 8 BUN 14 D Creatinine 0.8 Creat Clearance w eGFR > 60 POC Glucometer Random Glucose 147 H D Calcium 8.6 Total Bilirubin 0.7 D AST 71 H D ALT 54 D Alkaline Phosphatase 113 Total Protein 7.5 Albumin 3.6 Urine Color Urine Appearance Urine pH Ur Specific [place] Urine Protein Urine Glucose (UA) Urine Ketones Urine Blood Urine Nitrite Urine Bilirubin Urine Urobilinogen Ur Leukocyte Esterase RPR Titer Nonreactive 04/12/17 04/13/17 04/13/17 05:38 07:30 07:45 WBC RBC Hgb Hct MCV MCH MCHC RDW Plt Count MPV Sodium Potassium Chloride Carbon Dioxide Anion Gap BUN Creatinine Creat Clearance w eGFR POC Glucometer 105 Random Glucose Calcium Total Bilirubin AST 33 D ALT 45 Alkaline Phosphatase Total Protein Albumin Urine Color Ltyellow Urine Appearance Clear Urine pH 6.0 Ur Specific [place] 1.020 Urine Protein Negative Urine Glucose (UA) Negative Urine Ketones Negative Urine Blood Negative Urine Nitrite Negative Urine Bilirubin Negative Urine Urobilinogen Negative Ur Leukocyte Esterase Negative RPR Titer LABS NOTED. - Treatment Hospital Course: Detox Protocol Followed, Detoxed Safely, Responded well, Discharged Condition Good Patient has Accepted a Rehab Referral to: PT ELECTING TO GO HOME. 12-STEP/AA PROGRAMS RECOMMENDED FOR FOLLOW-UP. - Medication Discharge Medications: Ambulatory Orders NK [No Known Home Medication] 02/25/17 - Diagnosis (1) Alcohol dependence with uncomplicated withdrawal Status: Acute (2) Alcohol-induced mood disorder Status: Acute (3) Nicotine dependence Status: Chronic Qualifiers: Nicotine product type: cigarettes Substance use status: uncomplicated Qualified Code(s): F17.210 - Nicotine dependence, cigarettes, uncomplicated (4) S/P cholecystectomy Status: Acute (5) GERD (gastroesophageal reflux disease) Status: Chronic Qualifiers: Esophagitis presence: without esophagitis Qualified Code(s): K21.9 - Gastro-esophageal reflux disease without esophagitis (6) Insomnia Status: Chronic Qualifiers: Insomnia type: unspecified Qualified Code(s): G47.00 - Insomnia, unspecified (7) PTSD (post-traumatic stress disorder) Status: Suspected (8) Drug-induced mood disorder Status: Acute - AMA Did Patient Leave Against Medical Advice: No
== END 2017-04-14 12:08 | disposition home or self-care (01) | DRG 775 ==
LOC: YASAS 08:13 → Y3N 09:48
PROVIDERS: ADMIT Internal Medicine; ATTEND Internal Medicine
PROC: HZ2ZZZZ Detoxification Services for Substance Abuse Treatment (ICD-10-PCS; principal; 2017-04-14)
DX: F10.230 Alcohol dependence with withdrawal, uncomplicated (principal); F17.210 Nicotine dependence, cigarettes, uncomplicated; F19.24 Other psychoactive substance dependence with psychoactive substance-induced mood disorder; F10.24 Alcohol dependence with alcohol-induced mood disorder; F43.10 Post-traumatic stress disorder, unspecified; G47.00 Insomnia, unspecified; K21.9 Gastro-esophageal reflux disease without esophagitis; Z59.0 Homelessness
CPT/HCPCS: 36415; 80053; 81003; 84450; 84460; 85027; 86593; 93005; 93010